=== PATIENT | male | born 1985 | race Caucasian/White ===

== ENCOUNTER 2017-12-20 08:36 | Emergency (ER) | payer MEDICAID ==
[~2017-12-20] VITALS: Ht 188 cm; Wt 97.8 kg
[2017-12-20 08:45] VITALS: BP 114/60
[2017-12-20] MEDS ORDERED: ACETAMINOPHEN 500 MG TABLET PO ONE (09:00)
[2017-12-20] MEDS ORDERED: ACETAMINOPHEN 500 MG TABLET ONE (09:08)
[2017-12-20] MEDS ORDERED: PLEASE ENTER ALLERGIES MC SCH (09:30)
== END 2017-12-20 09:22 | disposition home or self-care (01) ==
LOC: ED 09:16
DX: J02.8 Acute pharyngitis due to other specified organisms (principal); B97.89 Other viral agents as the cause of diseases classified elsewhere
CPT/HCPCS: 99283

== ENCOUNTER 2018-01-16 06:22 | Emergency (ER) | payer MEDICAID ==
[~2018-01-16] VITALS: Ht 188 cm; Wt 97.5 kg
[2018-01-16] MEDS ORDERED: DEXAMETHASONE 4 MG TABLET ONE (06:36)
[2018-01-16] MEDS ORDERED: IBUPROFEN 800 MG TABLET ONE (06:37)
[2018-01-16] MEDS ORDERED: DEXAMETHASONE 4 MG TABLET PO ONE (07:00)
[2018-01-16] MEDS ORDERED: IBUPROFEN 800 MG TABLET PO SCH (07:00)
[2018-01-16 08:01] VITALS: BP 110/72
== END 2018-01-16 08:04 | disposition home or self-care (01) ==
LOC: ED 07:58
DX: J02.0 Streptococcal pharyngitis (principal)
CPT/HCPCS: 87880; 99283

== ENCOUNTER 2018-02-08 06:12 | Emergency (ER) | payer MEDICAID ==
[~2018-02-08] VITALS: Ht 188 cm; Wt 95.5 kg
[2018-02-08 07:59] VITALS: BP 122/69
== END 2018-02-08 08:02 | disposition home or self-care (01) ==
LOC: ED 06:22
DX: J15.9 Unspecified bacterial pneumonia (principal); F17.200 Nicotine dependence, unspecified, uncomplicated
CPT/HCPCS: 71046; 99284

== ENCOUNTER 2018-04-30 15:10 | Emergency (ER) | payer MEDICAID ==
[~2018-04-30] VITALS: Ht 188 cm; Wt 93.7 kg
[2018-04-30 15:19] VITALS: BP 128/77
[2018-04-30] MEDS ORDERED: HYDROcodone/APAP 5/325 TABLET PO ONE (15:30)
[2018-04-30] MEDS ORDERED: HYDROcodone/APAP 5/325 TABLET ONE (15:58)
== END 2018-04-30 16:27 | disposition home or self-care (01) ==
LOC: ED 16:07
DX: K02.9 Dental caries, unspecified (principal); F17.200 Nicotine dependence, unspecified, uncomplicated
CPT/HCPCS: 99283

== ENCOUNTER 2019-02-16 05:34 | Emergency (ER) | payer MEDICAID ==
[~2019-02-16] VITALS: Ht 188 cm; Wt 84.7 kg
[2019-02-16] MEDS ORDERED: IBUPROFEN 200 MG TABLET ONE (05:51)
--- NOTE | 2019-02-16 05:59 | NUR ---
PT MEDICATED PER MAR. PT DENIES FURTHER NEEDS AT THIS TIME
[2019-02-16] MEDS ORDERED: IBUPROFEN 200 MG TABLET PO ONE (06:00)
[2019-02-16 06:33] VITALS: BP 124/74
== END 2019-02-16 06:40 | disposition home or self-care (01) ==
LOC: ED 06:31
DX: S52.254A Nondisplaced comminuted fracture of shaft of ulna, right arm, initial encounter for closed fracture (principal); F17.200 Nicotine dependence, unspecified, uncomplicated; W18.30XA Fall on same level, unspecified, initial encounter; Y93.89 Activity, other specified; Y92.009 Unspecified place in unspecified non-institutional (private) residence as the place of occurrence of the external cause; Y99.8 Other external cause status
CPT/HCPCS: 29105; 99283

== ENCOUNTER 2019-08-27 13:50 | Emergency (ER) | payer MEDICAID, OTHER ==
[~2019-08-27] VITALS: Ht 185.4 cm; Wt 80.0 kg
--- NOTE | 2019-08-27 14:06 | NUR ---
BIB [facility]. C/O painful swallowing. Hx of tonsillar abscesses drained x 4. Patient has been told he needs a tonsillectomy, but he has not had it done yet. VSS. Will continue to monitor.
[2019-08-27] MEDS ORDERED: SODIUM CHLORIDE 0.9% 1,000ML IVBOLUS ONE (14:30)
[2019-08-27] MEDS ORDERED: AMPICILLIN/SULBACTAM 3 GM in SODIUM CHLORIDE 0.9% 100 ML IV ONE (14:30)
[2019-08-27] MEDS ORDERED: ONDANSETRON 2MG/ML, 2ML ONE (14:54)
[2019-08-27] MEDS ORDERED: MORPHINE SULFATE 4 MG/ML, 1ML ONE (14:54)
[2019-08-27] MEDS ORDERED: DEXAMETHASONE 4 MG/ML, 5ML ONE (14:54)
[2019-08-27 14:56] LABS: BASOPHILS # (AUTO) 0.01 x10^3/uL (0-0.1); BASOPHILS % (AUTO) 0 % (0-1); EOSINOPHILS # (AUTO) 0.11 x10^3/uL (0-0.4); EOSINOPHILS % (AUTO) 1 % (1-7); LYMPHOCYTES # (AUTO) 1.24 x10^3/uL (1-3.4); LYMPHOCYTES % (AUTO) 8 % (22-44); MD NO; MEAN CORPUSCULAR HEMOGLOBIN 31.1 pg (27.5-34.5); MEAN CORPUSCULAR HGB CONC 33.8 g/dL (33.2-36.2); MEAN CORPUSCULAR VOLUME 92.2 fL (81-97); MEAN PLATELET VOLUME 7.9 fL (7.4-10.4); MONOCYTES # (AUTO) 1.38 x10^3/uL (0.2-0.8); MONOCYTES % (AUTO) 9 % (2-9); NEUTROPHILS # (AUTO) 12.79 x10^3/uL (1.8-6.8); NEUTROPHILS % (AUTO) 82 % (42-75); PLATELET COUNT 329 x10^3/uL (130-400); RED CELL DISTRIBUTION WIDTH 12.7 % (9.4-14.8)
[2019-08-27] MEDS ORDERED: DEXAMETHASONE 4 MG/ML, 1ML IVPush ONE (15:00)
[2019-08-27] MEDS ORDERED: MORPHINE SULFATE 4 MG/ML, 1ML IVPush ONE (15:00)
--- NOTE | 2019-08-27 15:04 | NUR ---
TASK RN NOTE: LAB PAGED TO COLLECT SECOND BLOOD CX THIS RN WAS UNABLE TO DRAW BLOOD CX FROM PIV START.
[2019-08-27 15:09] LABS: ANION GAP 12 mmol/L (5-15); CALCIUM 9.5 mg/dL (8.5-10.1); CHLORIDE 102 mmol/L (98-107); CREATININE 0.84 mg/dL (0.7-1.3)
[2019-08-27] MEDS ORDERED: OMNIPAQUE 350 MG/ML, 100ML BOTTLE ONE (15:39)
[2019-08-27 15:54] VITALS: BP 108/70
--- NOTE | 2019-08-27 15:55 | NUR ---
VSS. Ken allen. No other needs.
--- NOTE | 2019-08-27 16:14 | NUR ---
DR POWELL SPOKE WITH DR TAPIA
[2019-08-27] MEDS ORDERED: RACEPINEPHRINE INH 2.25%, 0.5ML NPPB ONE (16:30)
[2019-08-27] MEDS ORDERED: RACEPINEPHRINE INH 2.25%, 0.5ML ONE ×2 (16:36→16:42)
[2019-08-27] MEDS ORDERED: LIDOCAINE 1%-EPI 1:100K, 20ML ONE (16:52)
[2019-08-27] MEDS ORDERED: BENZOCAINE AEROSOL SPRAY 20%, 60ML ONE (16:52)
[2019-08-27] MEDS ORDERED: LIDOCAINE 2%, 20ML SQ ONE (17:00)
--- NOTE | 2019-08-27 17:00 | NUR ---
CLIFFORD Rider at bedside performing I&D on tonsilar abscess.
[2019-08-27] MEDS ORDERED: HYDROcodone/APAP 5/325 TABLET PO ONE (18:00)
--- NOTE | 2019-08-27 18:02 | NUR ---
RN went into room to DC patient. Before the RN could speak, the patient became aggressive stating, "just get me out of here. You're not doing anything for me anyway". The RN explained that she had an rx for abx and pain meds for him. Patient refused them saying that they won't help. RN insisted they will and reminded him thathe needed to take him abx. RN directed patient to DC desk only to realize the patient had left his rx in the room. RN ran outside to where the patient was to give him his rx. As the RN yelled to the patient who was within earshot, the patient continued to quickly walk away from the ED ignoring the nurse.
== END 2019-08-27 18:08 | disposition home or self-care (01) ==
LOC: ED 17:29
DX: J36 Peritonsillar abscess (principal); A41.9 Sepsis, unspecified organism; F17.200 Nicotine dependence, unspecified, uncomplicated
CPT/HCPCS: 36415; 42700; 70491; 80048; 83605; 84145; 85025; 87040; 94640; 96374; 96375; 99284; J0295; J1100; J2270; J7030; Q9967